=== PATIENT | male | born 1985 | race Caucasian/White ===

== ENCOUNTER 2021-10-28 02:05 | Inpatient (IN) | payer OTHER, SELFPAY ==
[2021-10-28 03:31] VITALS: BMI 23.1
[2021-10-28] MEDS ORDERED: Guaifenesin DM 100-10/5 ML UDCUP PO PRN (04:26)
[2021-10-28] MEDS ORDERED: hydrALAZINE 20 MG/ML VIAL SLOW IVP PRN (04:26)
[2021-10-28] MEDS ORDERED: Acetaminophen 500 MG TAB PO PRN (04:26)
[2021-10-28] MEDS ORDERED: Ondansetron PF 4 MG/2 ML Vial IVP PRN (04:26)
[2021-10-28] MEDS ORDERED: Ondansetron ODT 4 MG TAB PO PRN (04:26)
[2021-10-28] MEDS ORDERED: Ketorolac Tromethamine 30 MG/ML VIAL IVP PRN (04:27)
[2021-10-28] MEDS: HYDROcodone/Acetaminophen 5/325 mg Tablet PO PRN ×3 (04:54→23:29)
[2021-10-28] MEDS: Sodium Chloride 0.9% 1,000 ML IV SCH ×2 (04:54→18:26)
[2021-10-28] MEDS: cefTRIAXone\\ROCEPHIN 2 GM in Sodium Chloride 0.9% 100 ML IVPB SCH (05:14)
[2021-10-28 06:16] LABS: Amphetamine Detected (NotDetected); Barbiturates Screen Not Detected (NotDetected); Benzodiazepine Screen Not Detected (NotDetected); Cocaine Metabolite Screen Not Detected (NotDetected); Methadone Not Detected (NotDetected); Methamphetamine Detected (NotDetected); Opiate Screen Not Detected (NotDetected); Oxycodone Screen Not Detected (NotDetected); Phencyclidine (PCP) Not Detected (NotDetected); THC/Cannabinoid Screen Detected (NotDetected); Tricyclic Screen Not Detected (NotDetected)
[2021-10-28] MEDS ORDERED: Sodium Chloride 0.65% Nasal 44 ML BOT EA NARE PRN (07:49)
[2021-10-28] MEDS ORDERED: Artificial Tear Sol 15 ML BOT EA EYE PRN (07:49)
[2021-10-28] MEDS ORDERED: Senokot S 8.6-50 MG TAB PO PRN (07:49)
[2021-10-28] MEDS ORDERED: Loratadine 10 MG TAB PO PRN (07:49)
[2021-10-28] MEDS ORDERED: Cepastat Lozenges 1 LOZ PO PRN (07:49)
[2021-10-28] MEDS ORDERED: Calcium Carbonate 500 MG ChewTAB PO PRN (07:49)
[2021-10-28] MEDS ORDERED: Moisturizing Cream (Eucerin) 113 GM JAR TOP PRN (07:49)
[2021-10-28] MEDS ORDERED: Loperamide HCl 2 MG CAP PO PRN (07:49)
[2021-10-28] MEDS: Oseltamivir 75 MG CAP PO SCH ×2 (09:10→20:30)
[2021-10-28] MEDS: Enoxaparin Sodium 40 MG/0.4 ML SYRINGE SC SCH (09:11)
[2021-10-28] MEDS: Famotidine 20 MG TAB PO SCH ×2 (09:11→20:23)
[2021-10-28 10:07] LABS: HIV (1/2) Antibody/Antigen Non-Reactive (NonReactive); HIV 1/2 INDEX 0.11 S/CO (<1.00)
[2021-10-28 13:48] LABS: Legionella Urinary Ag Negative (Negative); Strep pneumo Urine Ag NEGATIVE (NEGATIVE)
[2021-10-28 17:44] LABS: Anion Gap 12 mmol/L (10-20); BUN (Urea Nitrogen) 9 mg/dL (8.9-20.6); Calc. Creatinine Clearance 116 mL/min (70-130); Calcium 8.7 mg/dL (7.8-10.44); Carbon Dioxide 24 mmol/L (22-29); Chloride 99 mmol/L (98-107); Glucose 116 mg/dL (70-105); Potassium 4.2 mmol/L (3.5-5.1); Sodium 131 mmol/L (136-145)
[2021-10-28] MEDS ORDERED: VANCOMYCIN 2 GRAM/500 ML BAG 2 GM in Premix Bag 1 BAG IVPB SCH (19:30)
[2021-10-28] MEDS ORDERED: VANCOMYCIN 1.25 GM/250 ML BAG IVPB SCH (21:00)
[2021-10-29] MEDS: Sodium Chloride 0.9% 1,000 ML IV SCH (01:01)
[2021-10-29] MEDS: HYDROcodone/Acetaminophen 5/325 mg Tablet PO PRN ×3 (04:18→16:58)
[2021-10-29] MEDS: VANCOMYCIN 1.25 GM/250 ML BAG 1.25 GM in Premix Bag 1 BAG IVPB SCH ×3 (04:20→20:08)
[2021-10-29] MEDS: cefTRIAXone\\ROCEPHIN 2 GM in Sodium Chloride 0.9% 100 ML IVPB SCH (06:04)
[2021-10-29 06:26] LABS: #Eosinphils 0.4 thou/uL (0.0-0.7); #Lymphocytes 1.5 thou/uL (1.20-3.40); #Monocytes 1.7 thou/uL (0.11-0.59); #Neutrophils 13.1 thou/uL (1.40-6.50); %Basophils 0.2 % (0.0-1.0); %Eosinophils 2.6 % (0.0-10.0); %Monocytes 10.1 % (0.0-10.0); %Neutrophils 78.1 % (42.0-75.0); Hemoglobin 13.5 g/dL (14.0-18.0); Mean Corpuscular HGB CONC 32.9 g/dL (32.0-36.0); Mean Corpuscular Hemoglobin 30.7 pg (27.0-31.0); Mean Corpuscular Volume 93.3 fL (78.0-98.0); Mean Platelet Volume 7.7 fL (7.4-10.4); Platelet Count 243 thou/uL (130-400); RBC Distribution Width 11.7 % (11.5-14.5); Red Blood Cell (RBC) Count 4.39 mill/uL (4.70-6.10); White Blood Cell (WBC) Count 16.8 thou/uL (4.8-10.8)
[2021-10-29 06:41] LABS: ALT (SGPT) 41 U/L (8-55); AST (SGOT) 38 U/L (5-34); Albumin 3.1 g/dL (3.5-5.0); Alkaline Phosphatase 76 U/L (40-110); Anion Gap 10 mmol/L (10-20); BUN (Urea Nitrogen) 8 mg/dL (8.9-20.6); Bilirubin, Total 0.6 mg/dL (0.2-1.2); Calc. Creatinine Clearance 105 mL/min (70-130); Calcium 8.7 mg/dL (7.8-10.44); Carbon Dioxide 27 mmol/L (22-29); Chloride 100 mmol/L (98-107); Globulin 3.2 g/dL (2.4-3.5); Glucose 101 mg/dL (70-105); Magnesium 1.7 mg/dL (1.6-2.6); Phosphorus 2.5 mg/dL (2.3-4.7); Potassium 4.2 mmol/L (3.5-5.1); Protein, Total 6.3 g/dL (6.0-8.3); Sodium 133 mmol/L (136-145)
[2021-10-29] MEDS ORDERED: Lidocaine 1% w/Epinephrine 1:100K 20 ML VIAL ONE (09:56)
[2021-10-29] MEDS: Oseltamivir 75 MG CAP PO SCH ×2 (10:04→20:08)
[2021-10-29] MEDS: Famotidine 20 MG TAB PO SCH ×2 (10:04→20:07)
[2021-10-29] MEDS ORDERED: Morphine 2 MG/ML VIAL SLOW IVP PRN (10:47)
[2021-10-29] MEDS: Enoxaparin Sodium 40 MG/0.4 ML SYRINGE SC SCH (13:04)
[2021-10-29] MEDS: Benzonatate 100 MG CAP PO PRN ×2 (13:45→20:07)
[2021-10-29 19:16] LABS: Vancomycin, Trough 15.2 ug/mL
[2021-10-30] MEDS: Zolpidem Tartrate 5 MG TAB PO PRN ×2 (00:45→20:16)
[2021-10-30] MEDS: VANCOMYCIN 1.25 GM/250 ML BAG 1.25 GM in Premix Bag 1 BAG IVPB SCH ×3 (03:03→21:20)
[2021-10-30] MEDS: cefTRIAXone\\ROCEPHIN 2 GM in Sodium Chloride 0.9% 100 ML IVPB SCH (05:18)
[2021-10-30 06:33] LABS: #Basophils 0.1 thou/uL (0.0-0.2); #Eosinphils 0.6 thou/uL (0.0-0.7); #Lymphocytes 1.7 thou/uL (1.20-3.40); #Monocytes 1.4 thou/uL (0.11-0.59); #Neutrophils 8.2 thou/uL (1.40-6.50); %Basophils 0.5 % (0.0-1.0); %Eosinophils 5.2 % (0.0-10.0); %Neutrophils 68.4 % (42.0-75.0); Hemoglobin 13.7 g/dL (14.0-18.0); Mean Corpuscular HGB CONC 32.4 g/dL (32.0-36.0); Mean Corpuscular Hemoglobin 30.4 pg (27.0-31.0); Mean Corpuscular Volume 93.9 fL (78.0-98.0); Mean Platelet Volume 7.2 fL (7.4-10.4); Platelet Count 307 thou/uL (130-400); RBC Distribution Width 11.6 % (11.5-14.5); Red Blood Cell (RBC) Count 4.49 mill/uL (4.70-6.10)
[2021-10-30 06:59] LABS: Anion Gap 11 mmol/L (10-20); BUN (Urea Nitrogen) 9 mg/dL (8.9-20.6); CRP (Inflammatory) 15.92 mg/dL (= or < 0.5); Calc. Creatinine Clearance 119 mL/min (70-130); Calcium 8.9 mg/dL (7.8-10.44); Carbon Dioxide 27 mmol/L (22-29); Chloride 100 mmol/L (98-107); Glucose 101 mg/dL (70-105); Potassium 4.2 mmol/L (3.5-5.1); Sodium 134 mmol/L (136-145)
[2021-10-30] MEDS: Enoxaparin Sodium 40 MG/0.4 ML SYRINGE SC SCH (08:42)
[2021-10-30] MEDS: Famotidine 20 MG TAB PO SCH ×2 (08:42→20:16)
[2021-10-30] MEDS: Oseltamivir 75 MG CAP PO SCH ×2 (08:43→20:17)
[2021-10-30] MEDS: Acetaminophen 500 MG TAB PO PRN (08:46)
[2021-10-30] MEDS: HYDROcodone/Acetaminophen 5/325 mg Tablet PO PRN ×2 (12:27→20:15)
[2021-10-30 19:31] LABS: Vancomycin, Trough 16.3 ug/mL
[2021-10-30] MEDS: Benzonatate 100 MG CAP PO PRN (20:16)
[2021-10-31] MEDS: Acetaminophen 500 MG TAB PO PRN (03:23)
[2021-10-31] MEDS: VANCOMYCIN 1.25 GM/250 ML BAG 1.25 GM in Premix Bag 1 BAG IVPB SCH (03:24)
[2021-10-31] MEDS: cefTRIAXone\\ROCEPHIN 2 GM in Sodium Chloride 0.9% 100 ML IVPB SCH (05:28)
[2021-10-31 06:11] LABS: #Eosinphils 0.7 thou/uL (0.0-0.7); #Lymphocytes 1.5 thou/uL (1.20-3.40); #Monocytes 1.4 thou/uL (0.11-0.59); #Neutrophils 7.3 thou/uL (1.40-6.50); %Basophils 0.3 % (0.0-1.0); %Eosinophils 6.2 % (0.0-10.0); %Lymphocytes 13.8 % (21.0-51.0); %Monocytes 12.8 % (0.0-10.0); %Neutrophils 66.8 % (42.0-75.0); Hemoglobin 14.1 g/dL (14.0-18.0); Mean Corpuscular HGB CONC 32.7 g/dL (32.0-36.0); Mean Corpuscular Hemoglobin 30.7 pg (27.0-31.0); Mean Platelet Volume 7.2 fL (7.4-10.4); Platelet Count 332 thou/uL (130-400); RBC Distribution Width 11.6 % (11.5-14.5); Red Blood Cell (RBC) Count 4.59 mill/uL (4.70-6.10); White Blood Cell (WBC) Count 10.9 thou/uL (4.8-10.8)
[2021-10-31 06:36] LABS: Anion Gap 12 mmol/L (10-20); BUN (Urea Nitrogen) 7 mg/dL (8.9-20.6); Calc. Creatinine Clearance 138 mL/min (70-130); Calcium 8.8 mg/dL (7.8-10.44); Carbon Dioxide 28 mmol/L (22-29); Chloride 101 mmol/L (98-107); Glucose 95 mg/dL (70-105); Potassium 4.7 mmol/L (3.5-5.1); Sodium 136 mmol/L (136-145)
[2021-10-31 08:41] VITALS: BP 127/76; TEMP 98.3
[2021-10-31] MEDS: Enoxaparin Sodium 40 MG/0.4 ML SYRINGE SC SCH (08:47)
[2021-10-31] MEDS: Oseltamivir 75 MG CAP PO SCH (08:47)
[2021-10-31] MEDS: Famotidine 20 MG TAB PO SCH (08:47)
[2021-10-31] MEDS ORDERED: Carvedilol 3.125 MG TAB PO SCH (09:00)
[2021-10-31] MEDS ORDERED: Lisinopril 2.5 MG TAB PO SCH (09:00)
== END 2021-10-31 12:02 | disposition home or self-care (01) | DRG 167 ==
LOC: T4-B 03:25
PROVIDERS: ADMIT Internal Medicine; ATTEND Internal Medicine
PROC: 0JBG0ZZ Excision of Right Lower Arm Subcutaneous Tissue and Fascia, Open Approach (ICD-10-PCS; principal; 2021-10-29)
DX: J10.00 Influenza due to other identified influenza virus with unspecified type of pneumonia (principal); L02.413 Cutaneous abscess of right upper limb; B95.62 Methicillin resistant Staphylococcus aureus infection as the cause of diseases classified elsewhere; F15.10 Other stimulant abuse, uncomplicated; F12.10 Cannabis abuse, uncomplicated; Z20.822 Contact with and (suspected) exposure to COVID-19
CPT/HCPCS: 36415; 80048; 80053; 80202; 80306; 83735; 84100; 85025; 86140; 87070; 87077; 87116; 87186; 87205; 87206; 87385; 87389; 87449; 87804; 87899; 93306; J0696; J1650; J1885; J1956; J2270; J3370; J3490; J7050